=== PATIENT | male | born 1995 | race Hispanic/Latino ===

== ENCOUNTER 2016-09-12 03:01 | Observation (INO) | payer OTHER ==
[2016-09-12 03:06] VITALS: TEMP 98.6
--- NOTE | 2016-09-12 03:18 | ED PDOC ---
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 Patient aggressive in ED with multiple expletives and not answering questions of interviewer) Past Medical History Reviewed: Historical Data, Nursing Documentation, Vital Signs Vital Signs: Last Vital Signs Temp 98.6 F 09/12/16 03:04 Pulse 78 09/12/16 03:04 Resp 18 09/12/16 03:04 BP 139/87 09/12/16 03:04 Pulse Ox 98 09/12/16 03:04 - Family History Family History: States: No Known Family Hx - Allergies Allergies/Adverse Reactions: Allergies Allergy/AdvReac Type Severity Reaction Status Date / Time No Known Allergies Allergy Verified 09/12/16 03:12 Review of Systems ROS Statement: Except As Marked, All Systems Reviewed And Found Negative Physical Exam - Reviewed Nursing Documentation Reviewed: Yes Vital Signs Reviewed: Yes - Physical Exam Appears: Positive for: Well, Non-toxic (Patient verbally aggressive/combative in ED), No Acute Distress Head Exam: Positive for: ATRAUMATIC, NORMAL INSPECTION, NORMOCEPHALIC Skin: Positive for: Normal Color, Warm, DRY Eye Exam: Positive for: EOMI, Normal appearance, PERRL ENT: Positive for: Normal ENT Inspection Neck: Positive for: Normal, Painless ROM Cardiovascular/Chest: Positive for: Regular Rate, Rhythm Respiratory: Positive for: CNT, Normal Breath Sounds Gastrointestinal/Abdominal: Positive for: Normal Exam, Bowel Sounds, Soft Back: Positive for: Normal Inspection Extremity: Positive for: Normal ROM Neurologic/Psych: Positive for: Alert, Oriented - Laboratory Results Result Diagrams: 09/12/16 04:30 - ECG O2 Sat by Pulse Oximetry: 98 - Progress ED Course And Treament: Patient very aggressive in ED/walking through hallways/shouting/cursing at staff. Placed in four point restraints due to possibility of hurting others (staff/ patients) and self. ATivan 2 mg IM x 1 dose Patient persistently aggressive in ED. Haldol 5 mg IM x dose ED OBSERVATION Date of observation admission: 09/12/16 Time of observation admission: 03:40 - Observation admission statement Patient is being placed in observation because:: agitated behavior. - Goals of Observation Goals of observation are:: observe until clinical sobriety. - Progress Note Progress Note: 09/12/16 04:23 Haldol 5mg /ativan 2 mg given for sedation of patient. Patient has made angry statements to nursing staff with regards to depression/ self-harm/suicidal ideation. States he wants to " every single day of my life." Bloodwork/urine tox ordered/ crisis eval when patient chemically sober. Disposition - Clinical Impression Clinical Impression: Alcohol intoxication - Patient ED Disposition Is Patient to be Admitted: Transfer of Care - Disposition Disposition: Transfer of Care Disposition Time: 06:00 Condition: FAIR Patient Signed Over To: Master Barreto Handoff Comments: pending crisis eval
[2016-09-12 04:33] LABS: BASO % 0.5 % (0.0-2.0); EOS # 0.2 K/uL (0.0-0.7); EOS % 2.3 % (0.0-4.0); LYMPH # 2.1 K/uL (1.0-4.3); LYMPH % 30.9 % (20.0-40.0); MEAN CORPUSCULAR HEMOGLOBIN 27.4 pg (27.0-31.0); MEAN PLATELET VOLUME 7.6 fl (7.2-11.7); MONO # 0.4 K/uL (0.0-0.8); MONO % 5.6 % (0.0-10.0); NEUT # 4.1 K/uL (1.8-7.0); NEUT % 60.7 % (50.0-75.0); NRBC % 0.1 % (0.0-0.0); RED CELL DISTRIBUTION WIDTH 13.5 % (11.5-14.5); WHITE BLOOD COUNT 6.8 K/uL (4.8-10.8)
[2016-09-12 04:43] LABS: BLOOD UREA NITROGEN 12 mg/dl (9-20); CALCIUM 9.1 mg/dL (8.4-10.2); CARBON DIOXIDE 23 mmol/L (22-30); CHLORIDE 108 mmol/L (98-107); GFR AFRICAN-AMERICAN > 60; GLUCOSE,RANDOM 99 mg/dL (75-110); POTASSIUM 3.5 MMOL/L (3.6-5.0); SODIUM 151 mmol/l (132-148)
[2016-09-12 05:38] VITALS: RESP 16; O2SAT 99
--- NOTE | 2016-09-12 06:00 | ED PDOC ---
- Laboratory Results Result Diagrams: 09/12/16 04:30 09/12/16 04:30 - ECG O2 Sat by Pulse Oximetry: 99 Medical Decision Making Medical Decision Making: Patient s/o from Chris De La Paz PA-C at 0600 pending sobriety and crisis eval. Patient s/o to Dr. Bettencourt at 0700 pending sobriety and crisis eval. Scribe Attestation: Documented by Pepe Wagoner acting as a scribe for Master Barreto MD. Provider Scribe Attestation: All medical record entries made by the Scribe were at my direction and personally dictated by me. I have reviewed the chart and agree that the record accurately reflects my personal performance of the history, physical exam, medical decision making, and the department course for this patient. I have also personally directed, reviewed, and agree with the discharge instructions and disposition. Disposition - Clinical Impression Clinical Impression: Alcohol intoxication - POA Present On Arrival: None - Disposition Disposition: Transfer of Care Disposition Time: 07:00 Condition: FAIR Patient Signed Over To: Kiran Bettencourt III Handoff Comments: pending sobriety and crisis eval
[2016-09-12 06:34] VITALS: BP 111/55; PULSE 77
--- NOTE | 2016-09-12 07:09 | ED PDOC ---
- Laboratory Results Result Diagrams: 09/12/16 04:30 09/12/16 04:30 - ECG O2 Sat by Pulse Oximetry: 99 Medical Decision Making Medical Decision Making: Time: 0700 Patient signed out by Dr. Barreto pending sobriety 11am pt awake pending crisis eval 130p crisis eval performed and per Dr Anglin cleared for discharge. On re-eval pt denies suicidal thoughts. Feels stressed w school but states just wanted to drink last night for "fun w friends". Admits to drinking half bottle of vodka. Counseled extensively on danger of this level of alcohol intake- life threatening. Mom at bedside and pt also allowed to voice concerns w mom outside , he denies SI or thoughts of self harm. DC to care of mom, followup santana and PMD for further care/ counseling. Gait stable. Speech clear. Scribe Attestation: Documented by Fiorella Garcia acting as a scribe for Kiran Bettencourt DO MD Scribe Attestation: All medical record entries made by the Scribe were at my direction and personally dictated by me. I have reviewed the chart and agree that the record accurately reflects my personal performance of the history, physical exam, medical decision making, and the department course for this patient. I have also personally directed, reviewed, and agree with the discharge instructions and disposition. Disposition Counseled Patient/Family Regarding: Studies Performed, Diagnosis, Need For Followup - Clinical Impression Clinical Impression: Alcohol intoxication - POA Present On Arrival: None - Disposition Disposition: Routine/Home Disposition Time: 14:07 Condition: FAIR
[2016-09-12 13:57] LABS: RBC URINE 1 /hpf (0-3); URINE BACTERIA RARE (<OCC); URINE BILIRUBIN NEGATIVE (NEGATIVE); URINE BLOOD NEGATIVE (NEGATIVE); URINE COLOR YELLOW (YELLOW); URINE GLUCOSE (UA) NEG (Normal); URINE KETONE TRACE mg/dL (NEGATIVE); URINE LEUKOCYTE ESTERASE NEG Leu/uL (Negative); URINE PROTEIN NEGATIVE (NEGATIVE); URINE UROBILINOGEN 0.2-1.0 mg/dL (0.2-1.0); WBC URINE 1 /hpf (0-5)
== END 2016-09-12 14:07 | disposition home or self-care (01) ==
LOC: H.ER 03:01 → H.EROBSV 03:40
PROVIDERS: ADMIT Emergency Medicine; ATTEND Emergency Medicine
DX: F10.129 Alcohol abuse with intoxication, unspecified (principal); Z78.1 Physical restraint status